=== PATIENT | female | born 1970 | race African-American/Black ===

== ENCOUNTER → 2017-01-08 | Day surgery (SDC) | payer OTHER ==
[~2017-01-08] MED LIST: ACETAMINOPHEN PO; BIRTH CONTROL PILL PO; FERROUS GL324 ( 36 ) PO; KEFLEX500 M2 PO; LORTAB 5-325 M1 EACH PO; MULTI VITAMIN1 EACH PO; NO HOME MEDS
--- NOTE | ~2017-01-08 | OR ---
Unit #: [id number] #: [id number] Patient: CALVIN LEO [id number] [address] [place], [place] [address] [id number] O MR#: [id number] NAME: CALVIN LEO ROOM: Date of Procedure: 01/08/2017 Admission Date: 01/08/2017 Surgeon: Patrice Frias M.D. : 1970 Attending Physician: Patrice Frias M.D. Primary Care Physician: Samy Celis M.D. OPERATIVE REPORT PRIMARY CARE PHYSICIAN Dr. Samy Celis. PREOPERATIVE DIAGNOSES Iron-deficiency anemia, anemia of possible chronic gastrointestinal blood loss. PROCEDURES PERFORMED Upper gastrointestinal endoscopy as well as colonoscopy with biopsies. POSTOPERATIVE DIAGNOSES 1. For upper endoscopy, completely normal examination up to third part of duodenum. 2. For colonoscopy, a diminutive polyp in the proximal ascending colon, removed using cold biopsy forceps. Otherwise, examination was normal up to cecum and terminal ileum. The quality of the prep was excellent. 3. The patient did not have any potential source of blood loss in the entire examination. RECOMMENDATIONS The patient will continue oral iron therapy and her iron, ferritin, and CBC will be rechecked in 3 months', so she will be followed up in the office thereafter. SEDATION USED MAC. DESCRIPTION OF PROCEDURE Following detailed explanation of the potential risks and complications of an upper endoscopy and a colonoscopy, namely perforation, bleeding, and complications related to sedation, the patient was brought to GI lab and laid in the left lateral decubitus position. Lubricated tip of the Olympus video upper endoscope was passed through bite block into the proximal esophagus under direct vision. The entire esophageal mucosa was examined and appeared normal. Z-line was nicely demarcated, there being no esophagitis or hiatus hernia. The scope was then advanced into the gastric cavity and the latter was insufflated. Mucosa of the fundus, body, and antrum examined and appeared unremarkable. Pylorus was intubated with visualization of the normal duodenal bulb and second and third part of the duodenum. Upon withdrawal and retroflexion, incisura, cardia, and greater curve examined and no additional findings noted. The scope was then withdrawn in the distal esophagus. Entire esophageal Unit #: [id number] #: [id number] Patient: CALVIN LEO mucosa was examined all the way up to pharynx. No additional findings noted. The examination table was then turned by 180 degrees and the patient was positioned for a colonoscopy. A digital rectal examination was performed, which was normal. Lubricated tip of the Olympus video colonoscope was inserted through the anus and advanced under direct vision. The scope was advanced and passed up to sigmoid into descending colon. No diverticula were noted in this area. The scope tip was then navigated all the way up to cecum with visualization of the ileocecal valve and the appendiceal orifice. Preparation was excellent with good visualization and photodocumentation was obtained. Last few inches of the terminal ileum also visualized after intubation of the ileocecal valve and appeared normal. Successive segments of the colonic mucosa were examined upon withdrawal. Single small sessile polyp was noted in the proximal ascending colon. The latter was removed using cold biopsy forceps. No additional polyps were noted. The entire colonic mucosa otherwise was normal. The patient did not have any diverticulosis, angiodysplasia, nor any hemorrhoids. The scope was then withdrawn. The patient returned to the recovery area. She tolerated the procedure without any postprocedure complications. Dictated by... Sathish Oleary/galilea TD: 01/08/2017 17:37 JOB #: [id number] CC: Jaleesa Olivares M.D. OPERATIVE REPORT Page 1 of 1 X Patrice Frias MD X PROCEDURE OPERATIVE NOTE
== END | disposition home or self-care (01) ==
LOC: COPS 06:24
DX: D12.2 Benign neoplasm of ascending colon (principal); D50.0 Iron deficiency anemia secondary to blood loss (chronic); Z79.899 Other long term (current) drug therapy
CPT/HCPCS: 84703; 88305; J2250